=== PATIENT | female | born 1990 ===

== ENCOUNTER 2019-03-17 11:06 | Day surgery (SDC) | payer OTHER ==
[2019-03-17] MEDS ORDERED: FENTANYL PF 250MCG/5ML AMPUL ONE (15:41)
[2019-03-17] MEDS ORDERED: MIDAZOLAM HCL 2 MG/2ML VIAL ONE (15:41)
[2019-03-17] MEDS ORDERED: ROCURONIUM BROMIDE 50 MG/5 ML ONE (15:42)
[2019-03-17] MEDS ORDERED: BUPIVACAINE 0.75% DEXT-PF 2 ML AMPUL ONE (16:00)
[2019-03-17] MEDS ORDERED: BACITRACIN 50000 UNITS/VIAL ONE (16:36)
[2019-03-17] MEDS ORDERED: KETOROLAC TROMETHAMINE INJ 30 MG/ML VIAL IV ONE (17:00)
[2019-03-17] MEDS ORDERED: ASPIRIN EC 325 MG TABLET.DR PO ONE (17:00)
[2019-03-17] MEDS ORDERED: oxyCODONE IR immediate release 5 MG ONE (18:07)
[2019-03-17] MEDS ORDERED: KETOROLAC TROMETHAMINE INJ 30 MG/ML VIAL ONE (18:08)
[2019-03-17] MEDS ORDERED: ALBUTEROL FS 2.5 MG/3 ML VIAL.NEB ONE (18:55)
[2019-03-17] MEDS ORDERED: METOCLOPRAMIDE HCL 10 MG/2 ML VIAL ONE (19:23)
[2019-03-17] MEDS ORDERED: MEPERIDINE HCL/PF 100 MG/ML DISP.SYRIN IM ONE (19:30)
== END 2019-03-17 22:00 | disposition home or self-care (01) ==
LOC: DS 11:06
PROVIDERS: ATTEND Orthopaedic Surgery
DX: M76.62 Achilles tendinitis, left leg (principal); J45.909 Unspecified asthma, uncomplicated; E66.3 Overweight; Z98.890 Other specified postprocedural states; Z88.8 Allergy status to other drugs, medicaments and biological substances; Z79.899 Other long term (current) drug therapy; Z68.26 Body mass index [BMI] 26.0-26.9, adult
CPT/HCPCS: 27654; 27691; 84703; J0690; J1100; J1885; J2175; J2250; J2704; J2710; J2765 ×2; J3010; J3490 ×2; J7030